=== PATIENT | female | born 1995 | race Asian ===

== ENCOUNTER 2021-01-13 19:46 | Emergency (ER) | payer BC ==
[~2021-01-13] VITALS: Ht 160 cm; Wt 29.0 kg
[2021-01-13 19:55] VITALS: TEMP 99.4
[2021-01-13] MEDS ORDERED: PROM25SU RE (20:06)
[2021-01-13] MEDS ORDERED: ONDA4TAB3 PO (20:06)
[2021-01-13 20:19] LABS: PLATELET COUNT 256 K/uL (152-353)
[2021-01-13 20:32] LABS: POTASSIUM 3.2 mmol/L (3.6-5.2)
[2021-01-13 23:00] VITALS: BP 113/70
== END 2021-01-13 23:25 | disposition home or self-care (01) ==
LOC: ED 19:46
PROVIDERS: Family Medicine
DX: O21.1 Hyperemesis gravidarum with metabolic disturbance (principal); O23.31 Infections of other parts of urinary tract in pregnancy, first trimester; Z3A.01 Less than 8 weeks gestation of pregnancy
CPT/HCPCS: 36415; 80053; 81000; 81025; 84702; 85027; 87086; 87088; 96360; 96361; 96374; 99284; J0696; J2405

== ENCOUNTER 2021-02-05 00:22 | Emergency (ER) | payer BC ==
[~2021-02-05] VITALS: Ht 160 cm; Wt 66.2 kg
[~2021-02-05 00:22] MED LIST: ONDA4TAB3 PO; PROM25SU RE
[2021-02-05 02:30] LABS: PLATELET COUNT 266 K/uL (152-353)
[2021-02-05 02:40] LABS: POTASSIUM 3.6 mmol/L (3.6-5.2)
[2021-02-05 04:37] VITALS: BP 108/47; TEMP 98.6
== END 2021-02-05 04:39 | disposition home or self-care (01) ==
LOC: ED 00:22
PROVIDERS: Family Medicine
DX: O21.9 Vomiting of pregnancy, unspecified (principal); Z3A.11 11 weeks gestation of pregnancy
CPT/HCPCS: 36415; 80053; 81000; 81025; 82150; 83690; 85027; 96360; 96375; 99284; J2405

== ENCOUNTER 2021-02-16 15:18 | Emergency (ER) | payer BC ==
[~2021-02-16] VITALS: Ht 160 cm; Wt 66.2 kg
[2021-02-16 15:58] LABS: PLATELET COUNT 289 K/uL (152-353)
[2021-02-16 16:10] LABS: PARTIAL THROMBOPLASTIN TIME 23.2 SECONDS (24.5-33.6); POTASSIUM 3.2 mmol/L (3.6-5.2)
[2021-02-16 18:27] VITALS: BP 126/77; TEMP 97.2
== END 2021-02-16 18:40 | disposition home or self-care (01) ==
LOC: ED 15:18
PROVIDERS: Hospitalist
DX: O21.0 Mild hyperemesis gravidarum (principal); Z3A.12 12 weeks gestation of pregnancy
CPT/HCPCS: 80053; 81000; 84702; 85027; 85610; 85730; 96360; 96361; 96365; 96375; 99284; J0696; J2405

== ENCOUNTER 2021-02-19 02:10 | Emergency (ER) | payer BC ==
[~2021-02-19] VITALS: Ht 160 cm; Wt 66.2 kg
[2021-02-19 03:32] LABS: PLATELET COUNT 211 K/uL (152-353)
[2021-02-19 03:39] LABS: POTASSIUM 3.3 mmol/L (3.6-5.2)
[2021-02-19 04:35] VITALS: BP 128/82; TEMP 98.4
== END 2021-02-19 04:35 | disposition home or self-care (01) ==
LOC: ED 02:10
PROVIDERS: Emergency Medicine Emergency Medical Services
DX: O21.1 Hyperemesis gravidarum with metabolic disturbance (principal); Z3A.13 13 weeks gestation of pregnancy
CPT/HCPCS: 80048; 80307; 81000; 83735; 85027; 87086; 87088; 96360; 96372; 96374; 96375; 99284; J2405; J2550

== ENCOUNTER 2022-10-16 18:15 | Emergency (ER) | payer BC, OTHER ==
[~2022-10-16] VITALS: Ht 160 cm; Wt 66.2 kg
[2022-10-16 19:25] LABS: PLATELET COUNT 262 K/uL (152-353)
[2022-10-16 21:15] VITALS: BP 132/71; TEMP 98
== END 2022-10-16 21:15 | disposition home or self-care (01) ==
LOC: ED 18:15
PROVIDERS: Emergency Medicine
DX: K52.89 Other specified noninfective gastroenteritis and colitis (principal); R11.2 Nausea with vomiting, unspecified; R19.7 Diarrhea, unspecified
CPT/HCPCS: 36415; 80048; 85027; 96360; 96361; 96374; 96375; 99284; J2175; J2405